=== PATIENT | female | born 1995 | race Caucasian/White ===

== ENCOUNTER 2017-07-03 13:32 | Emergency (ER) | payer OTHER ==
[2017-07-03 17:00] LABS: URINE BLOOD (Dip) POC 1+ (NEGATIVE); URINE GLUCOSE (Dip) POC Negative (NEGATIVE); URINE KETONES (Dip) POC 4+ (NEGATIVE); URINE LEUKOCYTE EST (Dip) POC 1+ (NEGATIVE); URINE NITRITE (Dip) POC Negative (NEGATIVE); URINE TOTAL PROTEIN POC 1+ (NEGATIVE)
== END 2017-07-03 18:07 | disposition home or self-care (01) ==
LOC: FTE 13:32
DX: R30.0 Dysuria (principal); F17.210 Nicotine dependence, cigarettes, uncomplicated
CPT/HCPCS: 81003; 81025; 99283

== ENCOUNTER 2018-04-12 18:47 | Emergency (ER) | payer OTHER ==
[2018-04-12 21:54] LABS: ADD MAN DIFF? NO
[2018-04-12] MEDS: METOCLOPRAMIDE 10 MG INJ IV (21:57)
[2018-04-12] MEDS: SOD CHLORIDE 0.9% 1,000 ML IV (21:57)
[2018-04-12] MEDS: DIPHENHYDRAMINE 50 MG INJ IV (22:00)
[2018-04-12 22:01] LABS: WHITE BLOOD COUNT 16.8 10^3/ul (4.8-10.8)
[2018-04-12 22:01] LABS: BASOPHIL # 0.1 10^3/ul (0.0-0.1); BASOPHILS % 0.3 % (0.0-2.0); HEMATOCRIT 42.2 % (37.0-47.0); HEMOGLOBIN 14.5 g/dl (12.0-16.0); LYMPHOCYTES # 1.9 10^3/ul (0.8-2.9); LYMPHOCYTES % 11.4 % (15.0-51.0); MEAN CORPUSCULAR HEMOGLOBIN 31.5 pg (29.0-33.0); MEAN CORPUSCULAR HGB CONC 34.4 g/dl (32.0-37.0); MEAN CORPUSCULAR VOLUME 91.7 fl (82.0-101.0); MEAN PLATELET VOLUME 12.3 fl (7.4-10.4); MONOCYTE # 0.8 10^3/ul (0.3-0.9); MONOCYTES % 4.7 % (0.0-11.0); PLATELET COUNT 249 10^3/UL (140-415); RED CELL DISTRIBUTION WIDTH 12.9 % (11.5-14.5)
[2018-04-12] MEDS: ACETAMINOPHEN 325 MG TAB PO (22:01)
[2018-04-12 22:21] LABS: ADD UMIC YES; UR ASCORBIC ACID NEGATIVE (NEGATIVE); UR BACTERIA FEW /HPF (NONE SEEN); UR BILIRUBIN (Dip) NEGATIVE (NEGATIVE); UR BLOOD (Dip) 3+ mg/dL (NEGATIVE); UR CLARITY CLOUDY (CLEAR); UR COLOR AMBER (YELLOW); UR GLUCOSE (Dip) NEGATIVE (NEGATIVE); UR KETONES (Dip) 2+ mg/dL (NEGATIVE); UR LEUKOCYTE ESTERASE (Dip) NEGATIVE Leu/ul (NEGATIVE); UR MUCUS MANY /HPF (NONE SEEN); UR NITRITE (Dip) NEGATIVE (NEGATIVE); UR RBC 4 /HPF (0-5); UR SPECIFIC GRAVITY (Dip) 1.028 (1.003-1.030); UR SQUAMOUS EPITHELIAL CELL MANY /HPF (FEW); UR TOTAL PROTEIN (Dip) 2+ mg/dl (NEGATIVE); UR UROBILINOGEN (Dip) NEGATIVE (NEGATIVE); UR WBC 2 /HPF (0-5)
[2018-04-12 22:26] LABS: ALBUMIN 5.2 g/dl (3.3-4.9); ALKALINE PHOSPHATASE 71 IU/L (42-121); ANION GAP 16 (5-13); ASPARTATE AMINO TRANSFERASE 29 IU/L (15-46); BILIRUBIN,INDIRECT 1.9 mg/dl (0-1.1); BILIRUBIN,TOTAL 1.9 mg/dl (0.2-1.3); BLOOD UREA NITROGEN 6 mg/dl (7-20); CALCIUM 9.7 mg/dl (8.4-10.2); CARBON DIOXIDE 20 mmol/L (21-31); CHLORIDE 105 mmol/L (97-110); CREATININE 0.53 mg/dl (0.44-1.00); Estimated GFR > 60 mL/min (>60); GLUCOSE 106 mg/dl (70-220); LIPASE 57 U/L (23-300); POTASSIUM 3.1 mmol/L (3.5-5.1); SODIUM 141 mmol/L (135-144); TOTAL PROTEIN 9.5 g/dl (6.1-8.1)
[2018-04-12 22:29] LABS: ALANINE AMINOTRANSFERASE < 6 IU/L (13-69)
== END 2018-04-12 23:54 | disposition home or self-care (01) ==
LOC: FTE 18:47
DX: O21.0 Mild hyperemesis gravidarum (principal); O26.851 Spotting complicating pregnancy, first trimester; R10.2 Pelvic and perineal pain; Z3A.01 Less than 8 weeks gestation of pregnancy
CPT/HCPCS: 36415; 76705; 76801; 76817; 80053; 81001; 83690; 84702; 85025; 86900; 86901; 96374; 96375; 99285-25

== ENCOUNTER 2018-11-23 05:50 | Inpatient (IN) | payer OTHER ==
[2018-11-23] MEDS: MINERAL OIL LIGHT 10 ML VIAL TOP (06:30)
[2018-11-23] MEDS ORDERED: MISOPROSTOL 200 MCG TAB PR ×2 (06:30→14:00)
[2018-11-23] MEDS ORDERED: IBUPROFEN 600 MG TAB PO (06:30)
[2018-11-23] MEDS ORDERED: LIDOCAINE 1% (MPF) 30 ML INJ INJ (06:30)
[2018-11-23] MEDS ORDERED: METHYLERGONOVINE 0.2 MG INJ IM ×2 (06:30→14:00)
[2018-11-23] MEDS ORDERED: OXYTOCIN 30 UNITS/LR 500 ML IV ×2 (06:30)
[2018-11-23] MEDS ORDERED: CARBOPROST 250 MCG INJ IM ×2 (06:30→14:00)
[2018-11-23 06:59] LABS: ADD MAN DIFF? NO
[2018-11-23] MEDS: LACTATED RINGER'S 1,000 ML IV ×3 (07:03→09:31)
[2018-11-23 07:04] LABS: BASOPHILS % 0.3 % (0.0-2.0); EOSINOPHILS # 0.2 10^3/ul (0.0-0.5); EOSINOPHILS % 1.5 % (0.0-7.0); HEMATOCRIT 37.6 % (37.0-47.0); HEMOGLOBIN 12.7 g/dl (12.0-16.0); LYMPHOCYTES # 2.9 10^3/ul (0.8-2.9); LYMPHOCYTES % 27.9 % (15.0-51.0); MEAN CORPUSCULAR HEMOGLOBIN 32.2 pg (29.0-33.0); MEAN CORPUSCULAR HGB CONC 33.8 g/dl (32.0-37.0); MEAN CORPUSCULAR VOLUME 95.2 fl (82.0-101.0); MEAN PLATELET VOLUME 12.5 fl (7.4-10.4); MONOCYTE # 0.7 10^3/ul (0.3-0.9); MONOCYTES % 6.5 % (0.0-11.0); NEUTROPHIL # 6.4 10^3/ul (1.6-7.5); PLATELET COUNT 190 10^3/UL (140-415); RED BLOOD COUNT 3.95 10^6/ul (4.20-5.40); RED CELL DISTRIBUTION WIDTH 12.7 % (11.5-14.5)
[2018-11-23 07:04] LABS: WHITE BLOOD COUNT 10.2 10^3/ul (4.8-10.8)
[2018-11-23 07:24] LABS: INR 0.89; PARTIAL THROMBOPLASTIN TIME 25.1 Sec (23.0-35.0); PROTIME 12.1 Sec (11.9-14.9); PT RATIO 0.9
[2018-11-23 07:39] LABS: AMPHETAMINE/METHAMPHETAMINE Negative (NEGATIVE); BARBITURATES Negative (NEGATIVE); BENZODIAZEPINES Negative (NEGATIVE); COCAINE Negative (NEGATIVE); OPIATES Negative (NEGATIVE)
[2018-11-23 07:42] LABS: CANNABINOIDS Positive (NEGATIVE)
[2018-11-23 08:01] LABS: HEPATITIS B SURFACE ANTIGEN NEGATIVE (NEGATIVE)
[2018-11-23] MEDS: BUTORPHANOL 2 MG INJ IV (08:10)
[2018-11-23] MEDS ORDERED: FENTAnyl 2MCG/ML-ROPIV 0.2% 100 ML (09:29)
[2018-11-23] MEDS ORDERED: FENTAnyl 2MCG/ML-ROPIV 0.2% 100 ML BAG EPI (09:30)
[2018-11-23] MEDS ORDERED: DIPHENHYDRAMINE 50 MG INJ IV (09:30)
[2018-11-23] MEDS ORDERED: NALOXONE (0.4 MG/ML) INJ IV (09:30)
[2018-11-23] MEDS ORDERED: ONDANSETRON 4 MG INJ IV (09:30)
[2018-11-23] MEDS: OXYTOCIN 30 UNITS/LR 500 ML IV ×3 (11:59→17:14)
[2018-11-23] MEDS ORDERED: ZOLPIDEM 5 MG TAB PO (14:00)
[2018-11-23] MEDS ORDERED: OXYCODONE/ASPIRIN (4.88/325) TAB PO ×2 (14:00)
[2018-11-23] MEDS ORDERED: WITCH HAZEL/GLYCERIN PAD PR (14:00)
[2018-11-23 15:46] LABS: RAPID PLASMA REAGIN NONREACTIVE (NR)
[2018-11-23] MEDS: BENZOCAINE 20% 56 ML SPRAY TOP (16:52)
[2018-11-23] MEDS: LANOLIN HPA 1 PKT TOP (16:53)
[2018-11-23] MEDS: IBUPROFEN 600 MG TAB PO ×2 (18:57→23:56)
[2018-11-23] MEDS: SENNA/DOCUSATE NA (8.6MG/50MG) TAB PO (23:56)
[2018-11-24 05:33] LABS: ADD MAN DIFF? NO
[2018-11-24] MEDS: IBUPROFEN 600 MG TAB PO ×3 (05:36→17:08)
[2018-11-24 05:42] LABS: BASOPHILS % 0.3 % (0.0-2.0); EOSINOPHILS # 0.2 10^3/ul (0.0-0.5); EOSINOPHILS % 1.4 % (0.0-7.0); HEMATOCRIT 36.8 % (37.0-47.0); HEMOGLOBIN 12.3 g/dl (12.0-16.0); LYMPHOCYTES # 2.8 10^3/ul (0.8-2.9); LYMPHOCYTES % 17.7 % (15.0-51.0); MEAN CORPUSCULAR HEMOGLOBIN 31.9 pg (29.0-33.0); MEAN CORPUSCULAR HGB CONC 33.4 g/dl (32.0-37.0); MEAN CORPUSCULAR VOLUME 95.3 fl (82.0-101.0); MEAN PLATELET VOLUME 12.9 fl (7.4-10.4); MONOCYTES % 6.4 % (0.0-11.0); NEUTROPHIL # 11.6 10^3/ul (1.6-7.5); NEUTROPHILS % 73.6 % (39.0-77.0); PLATELET COUNT 176 10^3/UL (140-415); RED BLOOD COUNT 3.86 10^6/ul (4.20-5.40); RED CELL DISTRIBUTION WIDTH 12.6 % (11.5-14.5)
[2018-11-24 05:42] LABS: WHITE BLOOD COUNT 15.8 10^3/ul (4.8-10.8)
[2018-11-24] MEDS: SENNA/DOCUSATE NA (8.6MG/50MG) TAB PO (09:54)
[2018-11-25] MEDS: IBUPROFEN 600 MG TAB PO ×3 (00:09→11:58)
[2018-11-25] MEDS: SENNA/DOCUSATE NA (8.6MG/50MG) TAB PO ×2 (00:09→09:57)
[2018-11-25 08:16] LABS: ADD MAN DIFF? NO
[2018-11-25 08:22] LABS: BASOPHIL # 0.1 10^3/ul (0.0-0.1); BASOPHILS % 0.5 % (0.0-2.0); EOSINOPHILS # 0.3 10^3/ul (0.0-0.5); EOSINOPHILS % 2.2 % (0.0-7.0); HEMATOCRIT 36.7 % (37.0-47.0); HEMOGLOBIN 12.2 g/dl (12.0-16.0); LYMPHOCYTES # 2.9 10^3/ul (0.8-2.9); LYMPHOCYTES % 22.5 % (15.0-51.0); MEAN CORPUSCULAR HEMOGLOBIN 31.7 pg (29.0-33.0); MEAN CORPUSCULAR HGB CONC 33.2 g/dl (32.0-37.0); MEAN CORPUSCULAR VOLUME 95.3 fl (82.0-101.0); MEAN PLATELET VOLUME 12.8 fl (7.4-10.4); MONOCYTE # 0.8 10^3/ul (0.3-0.9); MONOCYTES % 6.5 % (0.0-11.0); NEUTROPHIL # 8.6 10^3/ul (1.6-7.5); NEUTROPHILS % 67.4 % (39.0-77.0); PLATELET COUNT 178 10^3/UL (140-415); RED BLOOD COUNT 3.85 10^6/ul (4.20-5.40); RED CELL DISTRIBUTION WIDTH 12.9 % (11.5-14.5)
[2018-11-25 08:22] LABS: WHITE BLOOD COUNT 12.8 10^3/ul (4.8-10.8)
[2018-11-25] MEDS: DIPHTH/TET/ACEL PERTUSS (ADULT) 0.5 ML VIAL IM* (12:00)
[2018-11-25] MEDS: BENZOCAINE 20% 56 ML SPRAY TOP (13:33)
== END 2018-11-25 14:00 | disposition home or self-care (01) | DRG 807 ==
LOC: OBT 05:50 → PP1 11-24 18:08 → L-D 05:50 → OBT 06:20 → L-D 06:20 → MS1 13:24
PROC: 10E0XZZ Delivery of Products of Conception, External Approach (ICD-10-PCS; principal; 2018-11-23)
DX: O99.214 Obesity complicating childbirth (principal); Z37.0 Single live birth; E66.9 Obesity, unspecified; O99.324 Drug use complicating childbirth; F12.90 Cannabis use, unspecified, uncomplicated; Z3A.38 38 weeks gestation of pregnancy; Z23 Encounter for immunization
CPT/HCPCS: 62322; 76815; 80307; 85025; 85610; 85730; 86592; 86850; 86900; 86901; 87340; 90715